=== PATIENT | female | born 1970 | race Caucasian/White ===

== ENCOUNTER → 2016-11-18 | Outpatient (CLI) | payer BC ==
[~2016-11-18] VITALS: Ht 165.1 cm; Wt 102.1 kg
[~2016-11-18] MED LIST: AMBIEN10 MG PO; CYANOCOBALAM1000 MCG PO; EFFEXOR XR75 MG PO; ERGOCALCIF50000 UNIT PO; FENOFIBRATE160 M1 PO; JUNEL1 EACH PO; NOLVADEX20 MG PO; NORCO 5/3251 TABLET PO; PROTONIX40 MG PO; TYLENOL EXTRA500 MG PO
== END | disposition home or self-care (01) ==
LOC: AMB 07:18
PROC: 0DJD8ZZ Inspection of Lower Intestinal Tract, Via Natural or Artificial Opening Endoscopic (ICD-10-PCS; principal; 2016-11-18)
DX: Z12.11 Encounter for screening for malignant neoplasm of colon (principal); Z15.09 Genetic susceptibility to other malignant neoplasm; Z80.0 Family history of malignant neoplasm of digestive organs; Z15.89 Genetic susceptibility to other disease; Z90.49 Acquired absence of other specified parts of digestive tract; Z85.3 Personal history of malignant neoplasm of breast; Z90.13 Acquired absence of bilateral breasts and nipples; Z80.3 Family history of malignant neoplasm of breast; E78.5 Hyperlipidemia, unspecified; K21.9 Gastro-esophageal reflux disease without esophagitis; Z88.1 Allergy status to other antibiotic agents; Z79.818 Long term (current) use of other agents affecting estrogen receptors and estrogen levels
CPT/HCPCS: J1100; J2250